=== PATIENT | female | born 1975 | race Hispanic/Latino ===

== ENCOUNTER 2024-07-13 05:32 | Observation (INO) | payer SELFPAY ==
[~2024-07-13] VITALS: Ht 167.6 cm; Wt 74.2 kg
[2024-07-13] MEDS: ONDANSETRON 4MG INJ IVP ONE (06:05)
[2024-07-13] MEDS: morPHINE 4 MG SYG IVP ONE (06:05)
[2024-07-13] MEDS: LIDOCAINE HCL 2% VISCOUS 15 ML UDCUP PO ONE (06:06)
[2024-07-13 06:07] LABS: BASOPHILS # (AUTO) 0.01 K/uL (0.00-0.20); BASOPHILS % (AUTO) 0.1 % (0.0-5.0); EOSINOPHILS # (AUTO) 0.02 K/uL (0.00-0.70); EOSINOPHILS % (AUTO) 0.2 % (0.0-8.0); HEMATOCRIT 40.7 % (36-48); IMMATURE GRANULOCYTE ABSOLUTE 0.05 K/uL (0-1); LYMPHOCYTES # (AUTO) 0.7 K/uL (1.0-4.8); MEAN CORPUSCULAR HEMOGLOBIN 31.2 pg (27.0-33.0); MEAN CORPUSCULAR HGB CONC 34.2 g/dL (32.0-36.0); MEAN CORPUSCULAR VOLUME 91.5 fL (79-99); MONOCYTES # (AUTO) 0.4 K/uL (0.1-1.0); MONOCYTES % (AUTO) 3.7 % (3.0-13.0); NEUTROPHILS # (AUTO) 10.4 K/uL (1.8-7.7); NEUTROPHILS % (AUTO) 89.6 % (40.0-77.0); PLATELET COUNT (AUTO) 284 K/uL (130-400); RED BLOOD CELL COUNT(AUTO) 4.45 MIL/uL (4.00-5.50); RED CELL DISTRIBUTION WIDTH 12.9 % (11.0-15.5); WHITE BLOOD COUNT (AUTO) 11.6 K/uL (4.8-10.8)
[2024-07-13] MEDS: LACTATED RINGERS 1000ML 1,000 ML IV ONE (06:07)
[2024-07-13] MEDS: MAG/ALUM/SIMETH 30 ML UDCUP PO ONE ×2 (06:07→08:20)
[2024-07-13] MEDS: DICYCLOMINE HCL 10 MG/5 ML ML PO ONE (06:07)
[2024-07-13 06:36] LABS: CREATININE 0.8 mg/dL (0.5-1.0); POTASSIUM 3.3 mmol/L (3.5-5.1)
[2024-07-13 06:48] LABS: CREATINE KINASE, TOTAL 168 U/L (21-232); HCG,QUANTITATIVE 3 mIU/mL (0-5)
[2024-07-13] MEDS ORDERED: IOHEXOL 350 MG/ML 100ML INFUS..BTL IV ONE (07:00)
[2024-07-13 08:29] LABS: ALBUMIN 4.2 g/dL (3.5-5.0); BILIRUBIN,DIRECT 0.1 mg/dL (0.0-0.3); BILIRUBIN,TOTAL 0.4 mg/dL (0.2-1.0); TOTAL PROTEIN, SERUM 8.3 g/dL (6.0-8.3)
[2024-07-13] MEDS: morPHINE 2 MG SYG IVP ONE (09:21)
[2024-07-13 09:50] LABS: APPEARANCE,URINE CLEAR (CLEAR); BILIRUBIN,URINE NEGATIVE (NEGATIVE); COLOR,URINE COLORLESS (YELLOW); GLUCOSE, URINE (UA) 30 mg/dL (NEGATIVE); KETONES,URINE 10 mg/dL (NEGATIVE); LEUKOCYTE ESTERASE ,URINE NEGATIVE Leu/uL (NEGATIVE); NITRATE,URINE NEGATIVE (NEGATIVE); OCCULT BLOOD,URINE NEGATIVE (NEGATIVE); PH,URINE 7.5 (5.0-8.0); PROTEIN,URINE 10 mg/dL (NEGATIVE); UROBILINOGEN,URINE 0.2 mg/dL (0.2-1.0)
[2024-07-13 09:53] LABS: ADD UA MICROSCOPIC YES
[2024-07-13 10:06] LABS: BACTERIA,URINE RARE /HPF (None Seen); RBC,URINE 0-1 /HPF (0-1); SQUAMOUS EPITHELIAL CELL,UR RARE /HPF (0-2)
[2024-07-13] MEDS ORDERED: 0.9%NACL 50ML IV SCH ×2 (10:30→11:00)
[2024-07-13] MEDS ORDERED: cefTRIAXone 1G VIAL IVPB SCH (10:30)
[2024-07-13] MEDS ORDERED: ZOSYN 3.375GM +NS 50ML IVPB SCH (10:30)
[2024-07-13] MEDS ORDERED: hydrALAZine 20MG/ML VIAL IV PRN (10:30)
[2024-07-13] MEDS: ZOSYN 3.375GM +NS 50ML IVPB SCH (10:52)
[2024-07-13] MEDS: 0.9%NACL 1000ML 1,000 ML IV SCH (10:52)
[2024-07-13 11:00] LABS: INR 0.96 (0.85-1.15); PROTHROMBIN TIME 10.4 SEC (9.6-11.6)
[2024-07-13 11:02] LABS: PARTIAL THROMBOPLASTIN TIME 25.4 SEC (26.3-35.5)
[2024-07-13 11:04] LABS: HEMOGLOBIN A1C 5.4 % (4.0-6.0)
[2024-07-13] MEDS ORDERED: morPHINE 2 MG SYG IVP PRN (12:00)
[2024-07-13] MEDS: ONDANSETRON 4MG INJ IVP PRN (12:24)
[2024-07-13] MEDS: ketOROlac 15MG/ML VIAL (15MG/ML) IV PRN (12:25)
[2024-07-13 14:08] LABS: AMPHET/METH SCREEN,URINE NEGATIVE (NEGATIVE); BARBITURATE SCREEN, URINE NEGATIVE (NEGATIVE); BENZODIAZEPINES SCREEN,URINE NEGATIVE (NEGATIVE); CANNABINOID SCREEN,URINE NEGATIVE (NEGATIVE); COCAINE SCREEN,URINE NEGATIVE (NEGATIVE); OPIATE SCREEN,URINE POSITIVE (NEGATIVE); PHENCYCLIDINE SCREEN,URINE NEGATIVE (NEGATIVE)
[2024-07-13] MEDS: FAMOTIDINE 20MG VIAL IV SCH (21:14)
[2024-07-13 21:49] VITALS: O2SAT 98
[2024-07-13 21:58] VITALS: BP 151/82; PULSE 76; RESP 18; TEMP 98.9
[2024-07-14] VITALS (28 sets, daily range): BP systolic 120–157; BP diastolic 71–88; PULSE 61–90; RESP 14–18; TEMP 97.6–98.8; O2SAT 97–100
[2024-07-14 07:07] LABS: BASOPHILS # (AUTO) 0.02 K/uL (0.00-0.20); BASOPHILS % (AUTO) 0.2 % (0.0-5.0); EOSINOPHILS # (AUTO) 0.04 K/uL (0.00-0.70); EOSINOPHILS % (AUTO) 0.5 % (0.0-8.0); HEMATOCRIT 40.8 % (36-48); IMMATURE GRANULOCYTE ABSOLUTE 0.04 K/uL (0-1); LYMPHOCYTES # (AUTO) 0.9 K/uL (1.0-4.8); LYMPHOCYTES % (AUTO) 9.9 % (21.0-51.0); MEAN CORPUSCULAR HEMOGLOBIN 31.4 pg (27.0-33.0); MEAN CORPUSCULAR HGB CONC 33.8 g/dL (32.0-36.0); MEAN CORPUSCULAR VOLUME 92.9 fL (79-99); MONOCYTES # (AUTO) 0.8 K/uL (0.1-1.0); MONOCYTES % (AUTO) 8.8 % (3.0-13.0); NEUTROPHILS # (AUTO) 6.9 K/uL (1.8-7.7); NEUTROPHILS % (AUTO) 80.1 % (40.0-77.0); PLATELET COUNT (AUTO) 261 K/uL (130-400); RED BLOOD CELL COUNT(AUTO) 4.39 MIL/uL (4.00-5.50); RED CELL DISTRIBUTION WIDTH 13.1 % (11.0-15.5); WHITE BLOOD COUNT (AUTO) 8.6 K/uL (4.8-10.8)
[2024-07-14 07:20] LABS: ALBUMIN 3.7 g/dL (3.5-5.0); BILIRUBIN,TOTAL 0.9 mg/dL (0.2-1.0); CREATININE 1.1 mg/dL (0.5-1.0); POTASSIUM 3.3 mmol/L (3.5-5.1); TOTAL PROTEIN, SERUM 7.6 g/dL (6.0-8.3)
[2024-07-14] MEDS ORDERED: BUPIvacaine/PF 0.25% 30ML VIAL IJ ONE (07:20)
[2024-07-14] MEDS: acetaMINOPHEN 1,000 MG/100 ML VIAL IV ONE (07:20)
[2024-07-14] MEDS: ONDANSETRON 4MG INJ ONE (07:20)
[2024-07-14] MEDS ORDERED: FENTanyl CITRate PF 50 MCG/1 ML 2ML VIAL ONE ×2 (07:28→08:28)
[2024-07-14] MEDS ORDERED: rocuRONium bROMide 10MG/1ML 5ML VL ONE (07:28)
[2024-07-14] MEDS ORDERED: MIDAZOLAM HCL 1 MG/ML 2ML VIAL ONE (07:28)
[2024-07-14] MEDS ORDERED: proPOFol 10 MG/ML 20ML VIAL IV ONE (07:28)
[2024-07-14] MEDS ORDERED: dexaMETHasone SOD PHOSPHATE 4 MG/ML 1ML VIAL ONE (07:29)
[2024-07-14] MEDS ORDERED: SUCCINYLCHOLINE CHLORIDE 20 MG/ML 10 ML VIAL ONE (07:33)
[2024-07-14] MEDS: BUPIvacaine/PF 0.25% 30ML VIAL IJ ONE (08:33)
[2024-07-14] MEDS: LACTATED RINGERS 1000ML 1,000 ML IV ONE (08:39)
[2024-07-14] MEDS ORDERED: GLYCOPYRROLATE 0.2 MG/ML 5 ML VIAL ONE (09:21)
[2024-07-14] MEDS ORDERED: NEOSTIGMINE METHYLSULFATE 1MG/ML IV ONE (09:21)
[2024-07-14] MEDS ORDERED: ketOROlac 30MG VIAL (30MG/ML) ONE (09:21)
[2024-07-14] MEDS ORDERED: MAGNESIUM 2GM PREMIX 50ML 50 ML IV PRN (10:00)
[2024-07-14] MEDS ORDERED: POTASSIUM CHLORIDE 20MEQ/100ML 100 ML IV PRN (10:00)
[2024-07-14] MEDS: traMADol HCL 50 MG TABLET PO PRN (11:41)
[2024-07-14] MEDS: SIMETHICONE 80 MG TAB.CHEW PO SCH (13:00)
[2024-07-14] MEDS: acetaMINOPHEN 325 MG TAB PO PRN (23:23)
[2024-07-15] VITALS: BP 136/66; PULSE 79; RESP 18; TEMP 98.5
[2024-07-15 04:00] VITALS: BP 138/79; PULSE 79; RESP 18; TEMP 98.3
[2024-07-15 05:32] LABS: HEMATOCRIT 32.8 % (36-48); MEAN CORPUSCULAR HEMOGLOBIN 30.8 pg (27.0-33.0); MEAN CORPUSCULAR HGB CONC 32.6 g/dL (32.0-36.0); MEAN CORPUSCULAR VOLUME 94.5 fL (79-99); RED BLOOD CELL COUNT(AUTO) 3.47 MIL/uL (4.00-5.50); RED CELL DISTRIBUTION WIDTH 13.2 % (11.0-15.5)
[2024-07-15 05:39] LABS: ALBUMIN 2.7 g/dL (3.5-5.0); BILIRUBIN,TOTAL 0.6 mg/dL (0.2-1.0); CREATININE 0.8 mg/dL (0.5-1.0); MAGNESIUM 1.9 mg/dL (1.80-2.40); POTASSIUM 3.9 mmol/L (3.5-5.1); TOTAL PROTEIN, SERUM 5.9 g/dL (6.0-8.3)
[2024-07-15 08:00] VITALS: O2SAT 97
[2024-07-15 08:29] VITALS: BP 132/77; PULSE 71; RESP 18; TEMP 98.2
[2024-07-15 11:18] VITALS: BP 158/89; PULSE 72; RESP 17; TEMP 98.1
== END 2024-07-15 16:20 | disposition home or self-care (01) ==
LOC: EDH 05:32 → EDHIP 05:33 → INTOOBSV 05:33 → 3AH 21:31
PROVIDERS: ADMIT Internal Medicine; ATTEND Internal Medicine
DX: K80.00 Calculus of gallbladder with acute cholecystitis without obstruction (principal); I10 Essential (primary) hypertension; R11.2 Nausea with vomiting, unspecified; E87.6 Hypokalemia; K82.8 Other specified diseases of gallbladder; R79.89 Other specified abnormal findings of blood chemistry; R60.0 Localized edema; Z79.899 Other long term (current) drug therapy; Z88.8 Allergy status to other drugs, medicaments and biological substances
CPT/HCPCS: 96376 ×3; 96365; 96366 ×3; 96375 ×2; 99285; 83036; 84443; 82550; 80076; 84484; 80048; 80305; 84702; 83690; 85025 ×2; 85610; 85730; 81001; 81025; 36415 ×3; 71045; 74177; 78226; 76705; 93005; 84145; 47562; 80053 ×2; 88304; 83735; 85027; J7120 ×2; J3490 ×5; J2270 ×2; J2405 ×5; J2543 ×7; J1885 ×3; Q9967; A9537; J7030; A4215; J3010 ×2; J0330; J0665 ×2; J2250; J2704; J2710; J1100; A4649 ×2; A4223; A4222; A4216 ×2; A4600; G0378 ×2; 96374

== ENCOUNTER 2024-08-22 12:30 | Emergency (ER) | payer SELFPAY ==
[~2024-08-22] VITALS: Ht 167.6 cm; Wt 67.4 kg
[2024-08-22] MEDS: 0.9%NACL 1000ML 1,000 ML IV ONE (12:57)
[2024-08-22] MEDS: morPHINE 2 MG SYG IVP ONE (12:57)
[2024-08-22] MEDS: ondanSETRON 4MG INJ IVP ONE (12:57)
[2024-08-22 13:10] VITALS: TEMP 99.3
[2024-08-22 13:13] LABS: BASOPHILS # (AUTO) 0.02 K/uL (0.00-0.20); BASOPHILS % (AUTO) 0.2 % (0.0-5.0); HEMATOCRIT 39.8 % (36-48); IMMATURE GRANULOCYTE ABSOLUTE 0.03 K/uL (0-1); LYMPHOCYTES # (AUTO) 0.6 K/uL (1.0-4.8); LYMPHOCYTES % (AUTO) 6.7 % (21.0-51.0); MEAN CORPUSCULAR HEMOGLOBIN 30.5 pg (27.0-33.0); MEAN CORPUSCULAR HGB CONC 35.2 g/dL (32.0-36.0); MEAN CORPUSCULAR VOLUME 86.7 fL (79-99); MONOCYTES # (AUTO) 0.9 K/uL (0.1-1.0); MONOCYTES % (AUTO) 11.1 % (3.0-13.0); NEUTROPHILS # (AUTO) 6.7 K/uL (1.8-7.7); NEUTROPHILS % (AUTO) 81.6 % (40.0-77.0); PLATELET COUNT (AUTO) 234 K/uL (130-400); RED BLOOD CELL COUNT(AUTO) 4.59 MIL/uL (4.00-5.50); RED CELL DISTRIBUTION WIDTH 12.3 % (11.0-15.5); WHITE BLOOD COUNT (AUTO) 8.2 K/uL (4.8-10.8)
[2024-08-22] MEDS ORDERED: IOHEXOL-350 75 ML VIAL IV ONE (13:41)
[2024-08-22 13:44] LABS: CREATININE 0.9 mg/dL (0.5-1.0)
[2024-08-22 13:48] LABS: APPEARANCE,URINE CLEAR (CLEAR); BILIRUBIN,URINE NEGATIVE (NEGATIVE); COLOR,URINE YELLOW (YELLOW); GLUCOSE, URINE (UA) NEGATIVE (NEGATIVE); KETONES,URINE 100 mg/dL (NEGATIVE); LEUKOCYTE ESTERASE ,URINE NEGATIVE Leu/uL (NEGATIVE); NITRATE,URINE NEGATIVE (NEGATIVE); PH,URINE 6.5 (5.0-8.0); PROTEIN,URINE 50 mg/dL (NEGATIVE); UROBILINOGEN,URINE 0.2 mg/dL (0.2-1.0)
[2024-08-22 13:50] LABS: ADD UA MICROSCOPIC YES
[2024-08-22 13:52] LABS: MUCUS,URINE RARE LPF (None Seen); SQUAMOUS EPITHELIAL CELL,UR FEW /HPF (0-2)
[2024-08-22 13:57] LABS: POTASSIUM 2.9 mmol/L (3.5-5.1)
[2024-08-22] MEDS: PoTASSium BIcarbonate/CIT AC 25 MEQ TABLET.EFF PO ONE (14:06)
[2024-08-22] MEDS ORDERED: DICY20TA2 PO (15:04)
[2024-08-22] MEDS ORDERED: METR-172 PO (15:04)
[2024-08-22] MEDS ORDERED: ONDA-243 PO (15:09)
[2024-08-22 15:10] VITALS: BP 169/98; PULSE 77; RESP 14; O2SAT 99
== END 2024-08-22 15:28 | disposition home or self-care (01) ==
LOC: EDH 12:30
DX: K52.9 Noninfective gastroenteritis and colitis, unspecified (principal); G89.18 Other acute postprocedural pain; I10 Essential (primary) hypertension; R11.0 Nausea; Z90.49 Acquired absence of other specified parts of digestive tract; Z79.899 Other long term (current) drug therapy
CPT/HCPCS: 99285; 74177; 96374; 96375; 80048; 83690; 85025; 81001; 36415; J2270; J7030; J2405; Q9967